=== PATIENT | female | born 1990 | race Caucasian/White ===

== ENCOUNTER 2018-12-14 05:45 | Emergency (ER) | payer SELFPAY ==
[2018-12-14] MEDS ORDERED: Ondansetron 4 MG/2 ML SDV IVPUSH ONE (06:02)
[2018-12-14] MEDS ORDERED: Tamsulosin 0.4 MG Cap.ER PO ONE (06:02)
[2018-12-14] MEDS ORDERED: Ketorolac 30 MG/ML SDV IM ONE (06:02)
--- NOTE | 2018-12-14 06:04 | EDM.PDOC ---
ED HPI GENERAL MEDICAL PROBLEM - General Chief Complaint: Abdominal Pain Stated Complaint: LOWER ABD PAIN Time Seen by Provider: 12/14/18 05:58 - History of Present Illness INITIAL COMMENTS - FREE TEXT/NARRATIVE: HISTORY AND PHYSICAL: History of present illness: Patient is a 28-year-old white female presents with a concern of acute left lower quadrant abdominal pain with radiation to her groin splint with associated nausea vomiting she denies trauma vaginal discharge irregular bleeding she denies history of urolithiasis. Denies history of ovarian cyst Review of systems: As per history of present illness and below otherwise all systems reviewed and negative. Past medical history: As per history of present illness and as reviewed below otherwise noncontributory. Surgical history: As per history of present illness and as reviewed below otherwise noncontributory. Social history: No reported history of drug or alcohol abuse. Family history: As per history of present illness and as reviewed below otherwise noncontributory. Physical exam: HEENT: Atraumatic, normocephalic, pupils reactive, negative for conjunctival pallor or scleral icterus, mucous membranes moist, throat clear, neck supple, nontender, trachea midline. Lungs: Clear to auscultation, breath sounds equal bilaterally, chest nontender. Heart: S1S2, regular, negative for clicks, rubs, or JVD. Abdomen: Soft, nondistended, tender left lower quadrant to deep palpation rebound no guarding. Negative for masses or hepatosplenomegaly. Negative for costovertebral tenderness. Pelvis: Stable nontender. Genitourinary: Deferred. Rectal: Deferred. Extremities: Atraumatic, negative for cords or calf pain. Neurovascular unremarkable. Neuro: Awake, alert, oriented. Cranial nerves II through XII unremarkable. Cerebellum unremarkable. Motor and sensory unremarkable throughout. Exam nonfocal. Diagnostics: CBC CMP UA hCG CT abdomen and pelvis Therapeutics: Saline 1 L bolus and Toradol 30 mg IV Zofran 4 mg IV Flomax 0.4 mg by mouth Dilaudid 1 mg IV Impression: #1 acute left-sided abdominal pain Definitive disposition and diagnosis as appropriate pending reevaluation and review of above. LLQ Pain Score (Numeric/FACES): 8 - Related Data Allergies Allergy/AdvReac Type Severity Reaction Status Date / Time cefaclor [From [facility]] Allergy Hives Verified 12/14/18 05:57 Home Meds: Home Meds . [No Known Home Meds] 12/14/18 [History] Past Medical History - Past Health History Medical/Surgical History: Denies Medical/Surgical History Social & Family History - Family History Family Medical History: Noncontributory - Tobacco Use Smoking Status *Q: Current Every Day Smoker Years of Tobacco use: 5 Packs/Tins Daily: 0.5 - Recreational Drug Use Recreational Drug Use: No ED ROS GENERAL - Review of Systems Review Of Systems: ROS reveals no pertinent complaints other than HPI. ED EXAM, GENERAL - Physical Exam Exam: See Below (See dictation) Course - Vital Signs Last Recorded V/S: Last Vital Signs Temp 35.3 C 12/14/18 05:52 Pulse 71 12/14/18 07:08 Resp 16 12/14/18 05:52 BP 110/54 L 12/14/18 07:08 Pulse Ox 95 12/14/18 07:08 - Orders/Labs/Meds Labs: Laboratory Tests 12/14/18 12/14/18 12/14/18 Range/Units 06:00 06:00 06:00 WBC 7.34 (4.0-11.0) K/uL RBC 5.01 (4.30-5.90) M/uL Hgb 15.0 (12.0-16.0) g/dL Hct 44.6 (36.0-46.0) % MCV 89.0 (80.0-98.0) fL MCH 29.9 (27.0-32.0) pg MCHC 33.6 (31.0-37.0) g/dL RDW Std Deviation 42.5 (28.0-62.0) fl RDW Coeff of Leonora 13 (11.0-15.0) % Plt Count 253 (150-400) K/uL MPV 10.40 (7.40-12.00) fL Neut % (Auto) 57.9 (48.0-80.0) % Lymph % (Auto) 30.1 (16.0-40.0) % Shelby % (Auto) 8.7 (0.0-15.0) % Eos % (Auto) 2.9 (0.0-7.0) % Baso % (Auto) 0.4 (0.0-1.5) % Neut # (Auto) 4.3 (1.4-5.7) K/uL Lymph # (Auto) 2.2 (0.6-2.4) K/uL Shelby # (Auto) 0.6 (0.0-0.8) K/uL Eos # (Auto) 0.2 (0.0-0.7) K/uL Baso # (Auto) 0.0 (0.0-0.1) K/uL Nucleated RBC % 0.0 /100WBC Nucleated RBCs # 0 K/uL Sodium 140 (136-145) mmol/L Potassium 3.7 (3.5-5.1) mmol/L Chloride 103 (98-107) mmol/L Carbon Dioxide 24.3 (21.0-32.0) mmol/L BUN 9 (7.0-18.0) mg/dL Creatinine 0.8 (0.6-1.0) mg/dL Est Cr Clr Drug Dosing 78.30 mL/min Estimated GFR (MDRD) > 60.0 ml/min Glucose 96 (74-106) mg/dL Calcium 9.2 (8.5-10.1) mg/dL Total Bilirubin 0.4 (0.2-1.0) mg/dL AST 15 (15-37) IU/L ALT 19 (14-63) IU/L Alkaline Phosphatase 57 (46-116) U/L Total Protein 8.0 (6.4-8.2) g/dL Albumin 4.8 (3.4-5.0) g/dL Globulin 3.2 (2.6-4.0) g/dL Albumin/Globulin Ratio 1.5 (0.9-1.6) HCG, Qual NEGATIVE (NEG) HCG, Quant 1.0 mIU/mL Urine Color Urine Appearance Urine pH (5.0-8.0) Ur Specific Bandon (1.001-1.035) Urine Protein (NEGATIVE) mg/dL Urine Glucose (UA) (NEGATIVE) mg/dL Urine Ketones (NEGATIVE) mg/dL Urine Occult Blood (NEGATIVE) Urine Nitrite (NEGATIVE) Urine Bilirubin (NEGATIVE) Urine Urobilinogen (<2.0) EU/dL Ur Leukocyte Esterase (NEGATIVE) Urine RBC (0-2/HPF) Urine WBC (0-5/HPF) Ur Epithelial Cells (NONE-FEW) Urine Bacteria (NEGATIVE) Urine Mucus (NONE-MOD) 10/26/19 Range/Units 07:10 WBC (4.0-11.0) K/uL RBC (4.30-5.90) M/uL Hgb (12.0-16.0) g/dL Hct (36.0-46.0) % MCV (80.0-98.0) fL MCH (27.0-32.0) pg MCHC (31.0-37.0) g/dL RDW Std Deviation (28.0-62.0) fl RDW Coeff of Leonora (11.0-15.0) % Plt Count (150-400) K/uL MPV (7.40-12.00) fL Neut % (Auto) (48.0-80.0) % Lymph % (Auto) (16.0-40.0) % Shelby % (Auto) (0.0-15.0) % Eos % (Auto) (0.0-7.0) % Baso % (Auto) (0.0-1.5) % Neut # (Auto) (1.4-5.7) K/uL Lymph # (Auto) (0.6-2.4) K/uL Shelby # (Auto) (0.0-0.8) K/uL Eos # (Auto) (0.0-0.7) K/uL Baso # (Auto) (0.0-0.1) K/uL Nucleated RBC % /100WBC Nucleated RBCs # K/uL Sodium (136-145) mmol/L Potassium (3.5-5.1) mmol/L Chloride (98-107) mmol/L Carbon Dioxide (21.0-32.0) mmol/L BUN (7.0-18.0) mg/dL Creatinine (0.6-1.0) mg/dL Est Cr Clr Drug Dosing mL/min Estimated GFR (MDRD) ml/min Glucose (74-106) mg/dL Calcium (8.5-10.1) mg/dL Total Bilirubin (0.2-1.0) mg/dL AST (15-37) IU/L ALT (14-63) IU/L Alkaline Phosphatase (46-116) U/L Total Protein (6.4-8.2) g/dL Albumin (3.4-5.0) g/dL Globulin (2.6-4.0) g/dL Albumin/Globulin Ratio (0.9-1.6) HCG, Qual (NEG) HCG, Quant mIU/mL Urine Color YELLOW Urine Appearance SLT CLOUDY Urine pH 5.5 (5.0-8.0) Ur Specific Bandon >= 1.030 (1.001-1.035) Urine Protein NEGATIVE (NEGATIVE) mg/dL Urine Glucose (UA) NEGATIVE (NEGATIVE) mg/dL Urine Ketones NEGATIVE (NEGATIVE) mg/dL Urine Occult Blood SMALL H (NEGATIVE) Urine Nitrite NEGATIVE (NEGATIVE) Urine Bilirubin NEGATIVE (NEGATIVE) Urine Urobilinogen 0.2 (<2.0) EU/dL Ur Leukocyte Esterase NEGATIVE (NEGATIVE) Urine RBC 0-2 (0-2/HPF) Urine WBC 0-3 (0-5/HPF) Ur Epithelial Cells OCCASIONAL (NONE-FEW) Urine Bacteria RARE (NEGATIVE) Urine Mucus LIGHT (NONE-MOD) Meds: Medications Discontinued Medications Generic Name Dose Route Start Last Admin Trade Name Jamila PRN Reason Stop Dose Admin Hydromorphone HCl 1 mg 12/14/18 06:02 12/14/18 07:02 Dilaudid IM 12/14/18 06:03 Not Given ONETIME ONE Hydromorphone HCl 1 mg 12/14/18 06:18 12/14/18 06:19 Dilaudid IVPUSH 12/14/18 06:19 1 mg ONETIME ONE Administration Sodium Chloride 1,000 mls @ 999 mls/hr 12/14/18 06:08 12/14/18 06:16 Normal Saline IV 12/14/18 07:08 999 mls/hr .Bolus ONE Administration Ketorolac Tromethamine 30 mg 12/14/18 06:02 12/14/18 07:04 Toradol IM 12/14/18 06:03 Not Given ONETIME ONE Ketorolac Tromethamine 30 mg 12/14/18 07:04 12/14/18 07:05 Toradol IVPUSH 12/14/18 07:05 30 mg ONETIME ONE Administration Ondansetron HCl 4 mg 12/14/18 06:02 12/14/18 06:16 Zofran IVPUSH 12/14/18 06:03 4 mg ONETIME ONE Administration Tamsulosin HCl 0.4 mg 12/14/18 06:02 12/14/18 07:02 Flomax PO 12/14/18 06:03 0.4 mg ONETIME ONE Administration Departure - Departure Time of Disposition: 08:49 Disposition: Home, Self-Care 01 Condition: Good Clinical Impression: Abdominal pain - Discharge Information Referrals: PCP,None [Primary Care Provider] - Forms: ED Department Discharge Additional Instructions: The following information is given to patients seen in the emergency department who are being discharged to home. This information is to outline your options for follow-up care. We provide all patients seen in our emergency department with a follow-up referral. The need for follow-up, as well as the timing and circumstances, are variable depending upon the specifics of your emergency department visit. If you don't have a primary care physician on staff, we will provide you with a referral. We always advise you to contact your personal physician following an emergency department visit to inform them of the circumstance of the visit and for follow-up with them and/or the need for any referrals to a consulting specialist. The emergency department will also refer you to a specialist when appropriate. This referral assures that you have the opportunity for followup care with a specialist. All of these measure are taken in an effort to provide you with optimal care, which includes your followup. Under all circumstances we always encourage you to contact your private physician who remains a resource for coordinating your care. When calling for followup care, please make the office aware that this follow-up is from your recent emergency room visit. If for any reason you are refused follow-up, please contact the [facility] emergency department at and asked to speak to the emergency department charge nurse. Follow-up primary medical doctor as needed as discussed return as needed as discussed
[2018-12-14] MEDS ORDERED: Sodium Chloride 0.9% 1,000 ML IV ONE (06:08)
[2018-12-14] MEDS: HYDROmorphone 1 MG/ML Syringe IM ONE ×2 (06:16→07:02)
[2018-12-14] MEDS ORDERED: HYDROmorphone 1 MG/ML Syringe IVPUSH ONE (06:18)
[2018-12-14 06:41] LABS: BLOOD UREA NITROGEN,BUN 9 mg/dL (7.0-18.0); CARBON DIOXIDE,CO2 24.3 mmol/L (21.0-32.0); CHLORIDE,CL 103 mmol/L (98-107); GLUCOSE RANDOM 96 mg/dL (74-106); POTASSIUM,K 3.7 mmol/L (3.5-5.1); SODIUM,NA 140 mmol/L (136-145)
[2018-12-14] MEDS ORDERED: Ketorolac 30 MG/ML SDV IVPUSH ONE (07:04)
--- NOTE | 2018-12-14 07:26 | CT ---
INDICATION: Left-sided abdominal pain. TECHNIQUE: A CT volumetric acquisition was performed of the abdomen and pelvis without IV contrast. FINDINGS: The lung bases are clear. There is no evidence of pleural or pericardial fluid. Within the abdomen the patient`s liver and spleen are normal size and have uniform density. There is a tiny calcified granuloma within the posterior margin of the spleen. There is no evidence of inflammation within the pancreas or gallbladder. The bile ducts are normal in size. The adrenal glands have normal morphology. There is no evidence of a calculus within either kidney or ureter and no evidence of hydronephrosis or edema within either kidney. There is no evidence of retroperitoneal lymphadenopathy within the abdomen and pelvis. There is no evidence of pathologic dilatation or inflammatory change about the small intestine or colon. The uterus and ovaries appear normal in size. There is a trace amount of fluid within the dependent pelvic cul de sac. Findings are nonspecific but could reflect potential recent ovulation in this young female. The urinary bladder appears normal. IMPRESSION: Trace amount of fluid in the pelvic cul-de-sac which may indicate recent ovulation. No acute inflammatory change evident within the abdomen and pelvis. Please note that all CT scans at this facility use dose modulation, iterative reconstruction, and/or weight-based dosing when appropriate to reduce radiation dose to as low as reasonably achievable. Dictated by Sterling Gonzalez MD @ Dec 14 2018 7:19AM Signed by Dr. Sterling Gonzalez @ Dec 14 2018 7:24AM
--- NOTE | 2018-12-14 08:47 | US ---
INDICATION: Left lower quadrant pain. COMPARISON: none TECHNIQUE: 2D underwood scale and color Doppler images were acquired of the pelvis using a transabdominal and transvaginal approach. FINDINGS: Sonographic images demonstrate a normal size and smooth outer contour of the uterus. Uterus measures 7.5 cm in length by 4.2 cm in AP diameter by 4.4 cm in transverse dimension. The myometrium has a normal uniform echotexture. The endometrial lining appears normal and measures 4.1 mm in composite thickness. The ovaries demonstrate normal follicular development. Right ovary contains a dominant 17 x 10 mm follicle which compresses an adjacent follicle which measures 16 x 4 mm. The right ovary measures 3.4 x 2.6 x 3.7 cm in size and the left ovary measures 2.3 x 1.7 x 2.1 cm. The ovaries demonstrate normal arterial and venous blood flow on color Doppler analysis. There are no complex collections within the cul-de-sac. IMPRESSION: Negative pelvic ultrasound. Dictated by Sterling Gonzalez MD @ Dec 14 2018 8:39AM Signed by Dr. Sterling Gonzalez @ Dec 14 2018 8:45AM
== END 2018-12-14 09:00 | disposition home or self-care (01) ==
LOC: MW.ED 05:45
DX: R10.32 Left lower quadrant pain (principal); R11.2 Nausea with vomiting, unspecified; F17.210 Nicotine dependence, cigarettes, uncomplicated; Z88.1 Allergy status to other antibiotic agents
CPT/HCPCS: 36415; 74176; 76856; 80053; 81001; 84702; 84703; 85025; 96361; 96374; 96375; 99284; A9270; J1170; J1885; J2405; J7040; 99283